=== PATIENT | female | born 1995 | race Caucasian/White ===

== ENCOUNTER → 2017-10-07 | Emergency (ER) | payer OTHER ==
[~2017-10-07] MED LIST: LIDOCAINE VIS-MYLANTA 30 ML UD PO ONE; PROMETHAZINE HCL INJ 25 MG/ML VIAL IVPB ONE; SODIUM CHLORIDE 0.9% 1000ML 1,000 ML IVS ONE; SODIUM CHLORIDE 0.9% 50 ML BAG IVPB ONE
== END ==
LOC: ER 14:57
DX: O99.613 Diseases of the digestive system complicating pregnancy, third trimester (principal); A08.4 Viral intestinal infection, unspecified; K92.89 Other specified diseases of the digestive system; Z3A.00 Weeks of gestation of pregnancy not specified
CPT/HCPCS: 36415; 80048; 85025; A4216; J2550; J7030

== ENCOUNTER 2018-06-09 10:53 | Emergency (ER) | payer BC, OTHER ==
--- NOTE | 2018-06-09 12:17 | RAD ---
EXAM DESCRIPTION: Abdomen Series CLINICAL HISTORY: RLQ pain COMPARISON: None TECHNIQUE: AP radiographs of the abdomen supine upright. Complete upright chest.. FINDINGS: No abnormalities in the lung bases. No pleural effusion. No free air under the diaphragm. Minimal gas in the small bowel and colon. Fecal material in the colon. Minimal dextroscoliosis. Tiny calcification is most likely vascular in the left pelvis. IMPRESSION: No radiographic evidence of acute bowel obstruction or free intraperitoneal air. Constipation distal colon. Electronically signed by: Hossein Landry MD 06/09/2018 12:15 PM CDT
[2018-06-09 12:41] VITALS: BP 124/78
--- NOTE | 2018-06-09 13:12 | ED.PDOC ---
History of Present Illness - General Chief Complaint: Abdominal Pain Time Seen by Provider: 06/09/18 11:13 Source: patient Exam Limitations: no limitations - History of Present Illness Initial Comments: the patient is a 23-year-old female presenting to the emergency room secondary to some mild to moderate right lower quadrant pain that started this morning. She has had 1-2 episodes of mild diarrhea. She has had a in the past. Her tubes are not tied. She does have a history of previous ovarian cysts. Vital signs are within normal limits. No significant bleeding. No dysuria. No vaginal discharge. She is in a monogamous relationship. Pain is primarily in the right lower quadrant. No definite rebound or peritoneal signs at this point. No definite palpable mass. No bruising of the skin. No evidence of trauma. She is not on any control pills currently. She was not having any pain yesterday. She does not remember doing anything to hurt the area recently. Timing/Duration: 4-6 hours Severity: moderate Improving Factors: nothing Worsening Factors: movement Associated Symptoms: denies symptoms Allergies/Adverse Reactions: Allergies NO KNOWN ALLERGY Allergy (Verified 06/09/18 11:06) Review of Systems - Review of Systems Constitutional: States: no symptoms reported EENTM: States: no symptoms reported Respiratory: States: no symptoms reported Cardiology: States: no symptoms reported Gastrointestinal/Abdominal: States: abdominal pain Genitourinary: States: no symptoms reported Musculoskeletal: States: no symptoms reported Skin: States: no symptoms reported Neurological: States: no symptoms reported Endocrine: States: no symptoms reported All other Systems: No Change from Baseline Past Medical History (General) - Patient Medical History Hx Seizures: No Hx Stroke: No Hx Dementia: No Hx Asthma: No Hx of COPD: No Hx Cardiac Disorders: No Hx Congestive Heart Failure: No Hx Pacemaker: No Hx Hypertension: No Hx Thyroid Disease: No Hx Diabetes: No Hx Gastroesophageal Reflux: No Hx Renal Disease: No Hx Cancer: No Hx of HIV: No Hx Hepatitis C: No Hx MRSA: No - Vaccination History Hx Tetanus, Diphtheria Vaccination: No Hx Influenza Vaccination: No Hx Pneumococcal Vaccination: No Immunizations Up to Date: No - Social History Hx Tobacco Use: No Hx Chewing Tobacco Use: No Hx Alcohol Use: No Hx Substance Use: No Hx Substance Use Treatment: No Hx Depression: No Feels Threatened In Home Enviroment: No Feels Threatened In a Relationship: No Hx Physical Abuse: No Hx Emotional Abuse: No Hx Suspected Abuse: No - Activities of Daily Living Hospice Agency (if applicable):: None - Female History Patient is a Female of Child Bearing Age (10 -59 yrs old): Yes Patient : Yes Family Medical History - Family History Mother Family History: Unknown Physical Exam - Physical Exam General Appearance: Alert, Comfortable, No apparent distress Eye Exam: bilateral normal Ears, Nose, Throat: normal ENT inspection, normal pharynx Neck: full range of motion, supple Respiratory: lungs clear, normal breath sounds, no respiratory distress, no accessory muscle use Cardiovascular/Chest: normal peripheral pulses, regular rate, rhythm, no edema Peripheral Pulses: radial,right: 2+, radial,left: 2+ Gastrointestinal/Abdominal: soft, other - see history of present illness Rectal Exam: deferred Back Exam: normal inspection, no CVA tenderness, no vertebral tenderness Extremity: non-tender, normal inspection, no pedal edema, normal capillary refill 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 Laboratory work does look reassuring and the patient does not appear to be . X-ray looks reassuring as well. Source of the right lower quadrant pain is uncertain at this point. possible sources of the discomfort include a mild colitis, early appendicitis, ovarian pathology, etc... CT scan of the abdomen has been recommended for further evaluation however the patient defers at this point in time. Risk and warning signs have been explained to the patient. If she is worsening over the next couple of days then she is to return for additional workup. She has agreed to comply. ER warnings were given. she is to keep well -hydrated. Motrin can be used for discomfort. follow-up with primary care doctor later this week for reevaluation. - Results/Orders Results/Orders: acute abdominal series shows no acute pathology. No obstruction. No free air. No obvious abnormal calcifications. Laboratory Results - last 24 hr 06/09/18 06/09/18 06/09/18 11:20 11:20 11:20 WBC 5.7 RBC 5.15 Hgb 14.0 Hct 42.2 MCV 81.8 MCH 27.2 MCHC 33.3 RDW 16.2 H Plt Count 189 MPV 9.9 Absolute Neuts (auto) 4.00 Absolute Lymphs (auto) 1.40 Absolute Monos (auto) 0.30 Absolute Eos (auto) 0.10 Absolute Basos (auto) 0.00 Neutrophils % 69.0 Lymphocytes % 24.0 Monocytes % 5.5 Eosinophils % 1.0 Basophils % 0.5 Sodium 141 Potassium 4.2 Chloride 103 Carbon Dioxide 29 Anion Gap 13.2 BUN 15 Creatinine 0.86 BUN/Creatinine Ratio 17.4 Random Glucose 80 Serum Osmolality 281.1 Lactic Acid 1.1 Calcium 10.2 Total Bilirubin 0.9 AST 19 ALT 14 Alkaline Phosphatase 63 Serum Total Protein 8.3 H Albumin 4.9 Globulin 3.4 Albumin/Globulin Ratio 1.4 Urine Color Urine Appearance Urine pH Ur Specific [place] Urine Protein Urine Glucose (UA) Urine Ketones Urine Blood Urine Nitrite Urine Bilirubin Urine Urobilinogen Ur Leukocyte Esterase Urine RBC Urine WBC Ur Epithelial Cells Urine Bacteria Urine HCG, Qual 06/09/18 06/09/18 11:20 11:26 WBC RBC Hgb Hct MCV MCH MCHC RDW Plt Count MPV Absolute Neuts (auto) Absolute Lymphs (auto) Absolute Monos (auto) Absolute Eos (auto) Absolute Basos (auto) Neutrophils % Lymphocytes % Monocytes % Eosinophils % Basophils % Sodium Potassium Chloride Carbon Dioxide Anion Gap BUN Creatinine BUN/Creatinine Ratio Random Glucose Serum Osmolality Lactic Acid Calcium Total Bilirubin AST ALT Alkaline Phosphatase Serum Total Protein Albumin Globulin Albumin/Globulin Ratio Urine Color Yellow Urine Appearance Clear Urine pH 7.0 Ur Specific [place] 1.015 Urine Protein Negative Urine Glucose (UA) Negative Urine Ketones Negative Urine Blood Negative Urine Nitrite Negative Urine Bilirubin Negative Urine Urobilinogen 0.2 Ur Leukocyte Esterase Negative Urine RBC 0 Urine WBC 0 Ur Epithelial Cells 3-5 Urine Bacteria Rare Urine HCG, Qual Negative - EKG/XRAY/CT CT Ordered: No CT Interpretation Call Back: No Departure - Departure Clinical Impression: Abdominal pain Qualifiers: Abdominal location: right lower quadrant Qualified Code(s): R10.31 - Right lower quadrant pain Disposition: Discharge to Home or Self Care Condition: Fair Departure Forms: ED Discharge - Pt. Copy, Patient Portal Self Enrollment Diet: regular diet Activity: increase activity as tolerated Referrals: Bob Zuniga MD [Primary Care Provider] - 1-5 Days Additional Instructions: the patient is a 23-year-old female presenting to the emergency room secondary to right lower quadrant pain starting this morning. Laboratory work does look reassuring and the patient does not appear to be . X-ray looks reassuring as well. Source of the right lower quadrant pain is uncertain at this point. possible sources of the discomfort include a mild colitis, early appendicitis, ovarian pathology, etc... CT scan of the abdomen has been recommended for further evaluation however the patient defers at this point in time. Risk and warning signs have been explained to the patient. If she is worsening over the next couple of days then she is to return for additional workup. She has agreed to comply. ER warnings were given. she is to keep well -hydrated. Motrin can be used for discomfort. follow-up with primary care doctor later this week for reevaluation.
[2018-06-09 13:19] VITALS: TEMP 97.8
[2018-06-09 13:33] VITALS: O2SAT 99
== END 2018-06-09 13:30 | disposition home or self-care (01) ==
LOC: ER 10:53
DX: R10.31 Right lower quadrant pain (principal)

== ENCOUNTER → 2019-01-28 | Outpatient (CLI) | payer BC, OTHER | LOC: LAB.O 11:11 | PROVIDERS: ATTEND Obstetrics & Gynecology | DX: O40.3XX1 Polyhydramnios, third trimester, fetus 1 (principal); O16.3 Unspecified maternal hypertension, third trimester; Z3A.35 35 weeks gestation of pregnancy ==